=== PATIENT | female | born 1940 | race Caucasian/White ===

== ENCOUNTER 2025-05-08 11:53 | Emergency (ER) | payer OTHER, SELFPAY ==
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
[2025-05-08 12:07] VITALS: BP 160/88; PULSE 94; O2SAT 94
[2025-05-08 12:19] VITALS: BP 180/81; PULSE 69; RESP 18; TEMP 36.4; O2SAT 95; BMI 26.2
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
[2025-05-08] MEDS: oxyCODONE HCl Immed Release 5 MG TABLET PO (13:20)
[2025-05-08 15:07] VITALS: BP 145/65; PULSE 76; RESP 16; TEMP 36.8; O2SAT 92
[2025-05-08 15:17] VITALS: BP 145/65; PULSE 76; RESP 16; TEMP 36.8; O2SAT 92
== END 2025-05-08 15:18 | disposition home or self-care (01) ==
PROVIDERS: Emergency Provider Emergency Medicine; PCP Family Medicine
DX: S22.31XA Fracture of one rib, right side, initial encounter for closed fracture (principal); S80.02XA Contusion of left knee, initial encounter; S00.31XA Abrasion of nose, initial encounter; S80.811A Abrasion, right lower leg, initial encounter; V43.52XA Car driver injured in collision with other type car in traffic accident, initial encounter; Y93.89 Activity, other specified; Y92.415 Exit ramp or entrance ramp of street or highway as the place of occurrence of the external cause; Y99.9 Unspecified external cause status
CPT/HCPCS: 70450; 71250; 72125; 73000; 73564; 99283; 99284

== ENCOUNTER → 2025-05-08 12:47 | Outpatient (BNV) | payer OTHER, SELFPAY | PROVIDERS: Emergency Provider Emergency Medicine; Visit Provider Radiology Diagnostic Ultrasound | DX: R07.89 Other chest pain (principal); J43.2 Centrilobular emphysema; M47.812 Spondylosis without myelopathy or radiculopathy, cervical region; S09.90XA Unspecified injury of head, initial encounter; S89.92XA Unspecified injury of left lower leg, initial encounter; V89.2XXA Person injured in unspecified motor-vehicle accident, traffic, initial encounter; Z04.3 Encounter for examination and observation following other accident; Z96.652 Presence of left artificial knee joint | CPT/HCPCS: 70450; 71250; 72125; 73000; 73564 ==